=== PATIENT | female | born 1985 | race Native Hawaiian/Other Pacific Islander ===

== ENCOUNTER 2025-02-04 23:17 | Emergency (ER) | payer OTHER, SELFPAY ==
[2025-02-04 23:24] VITALS: BP 135/86
[2025-02-05 00:19] VITALS: BMI 30.5
--- NOTE | 2025-02-05 01:56 | ED.GENMED ---
History of Present Illness
General
Chief Complaint: Insect Sting
Source: patient and other (neighbor)
Exam Limitations: none
Time Seen by Provider: 02/05/25 01:28
History of Present Illness
History of Present Illness:
39-year-old female who says that on she noticed that her left anterior tib-fib area was itchy and she thought that maybe she must of suffered a bug bite although she does not recall seeing a bug, or removing any ticks, etc. Since then, she
notes progressive redness, swelling, and discomfort in the left anterior gallagher area. She denies fever, chills, joint pain, excessive fatigue, severe headache, chest pain, shortness of breath, abdominal pain, or other complaints.
Past History
Past History
ED Past Medical History: Other (Prediabetes, thyroid disorder, PCOS)
Social History
Tobacco: Non-smoker
Alcohol: None
Drug: None
Personal: Single
Phy Exam
Physical Exam
Physical Exam:
GENERAL: Alert , in no apparent distress, nontoxic, well-appearing
EYE: pupils equal and reactive
NECK: Supple, no significant adenopathy.
ENT: o/p clr, mmm.
CARDIAC: Regular rate and rhythm .
LUNGS: Clear breath sounds bilaterally, no acute respiratory distress, no wheezes/rales/rhonchi
ABDOMEN: Soft, without focal tenderness, no r/g, no cvat
NEUROLOGICAL: Alert and oriented, no focal neuro deficits
SKIN: Warm and dry, skin intact. There is an area of warmth, slight soft tissue swelling, slight tenderness to palpation, and redness at the left anterior tib-fib area without pustules, papules, fluctuance, crepitus, 'bull's-eye' appearance, or
other abnormalities. No streaking.
MUSCULOSKELETAL: No edema, well perfused.
PSYCH: Normal and appropriate interaction.
Course
Orders/Labs/Results
Orders:
Orders
02/05/25 01:44
US Legs, Left [US Periph Venous LOWER Ext LT] Urgent
Comment:
Reason For Exam: swelling
Vital Signs
Initial and Last Documented VS:
Initial Vital Signs
Temp Pulse Resp BP Pulse Ox
98.2 F 80 20 135/86 98
02/04/25 23:24 02/04/25 23:24 02/04/25 23:24 02/04/25 23:24 02/04/25 23:24
Last Documented Vital Signs
Temp Pulse Resp BP Pulse Ox
97.7 F 74 18 110/74 96
02/05/25 02:15 02/05/25 02:15 02/05/25 02:15 02/05/25 02:15 02/05/25 02:15
*Pulse Oximetry
SaO2: 98
Oxygen Mode of Delivery: Room air
Patient hypoxic: no
*Critical Care Note
Total Time (30-74mins, 75-104mins- exclusive of procedures): Not Applicable
Update Note
Update Note:
Patient presents to the Emergency Department with ___redness and swelling of left lower leg
Number and Complexity of Problems Addressed at the Encounter
� Chronic conditions affecting care:
� Acute Exacerbation and/or Progression of Chronic Illness:
� Differential Diagnosis includes: But not limited to DVT, cellulitis, abscess, etc. etc.
Amount and/or Complexity of Data to be Reviewed and Analyzed
� I performed an independent evaluation of and my interpretation is:
EKG:
CT:
Xrays:
Laboratory Studies:
Other:US VISION NAD
� Review of other/old records reveals:
� Clinical information was obtained by an independent historian:
� Prescriptions/Medications Considered but not given:
� Further testing considered but not performed:
Risk of Complications and/or Morbidity or Mortality of Patient Management
� Social determinants of health affecting care:
� Discussion with other providers (PCP, Hospitalists, Consultants, etc):
� Escalation of care including admission/observation vs risk of discharge considered:Given that patient is on OCP and presents with new onset leg swelling, we will get an ultrasound to exclude DVT. Assuming no DVT noted, exam
most otherwise consistent with cellulitis. Does not have typical stigmata of tickborne illness. Will treat cellulitis with doxycycline and instructions for close follow-up.
ED Attending Note
-
Portions of this chart may have been created with voice recognition software.� Occasional wrong word or��sound alike� substitutions may have occurred due to the inherent limitations of voice recognition software.
Discharge Plan
Departure
Patient Disposition: Home (Routine Discharge)
Date of Disposition: 02/05/25
Time of Disposition: 02:53
Patient with high blood pressure during this ER visit?: Yes
Condition: Good
Discharge Problem:
Cellulitis
Instructions: Cellulitis (Skin Infection), Adult (DC), BLOOD PRESSURE
Prescriptions:
New
doxycycline hyclate 100 mg capsule
100 mg PO BID 10 Days Qty: 20 0RF
Referrals:
UNKNOWN - PT DOES,NOT KNOW [Family Provider]
Activity Restrictions/Additional Instructions:
PLEASE SEE YOUR DOCTOR IN CLOSE FOLLOW-UP THIS WEEK. PLEASE MONITOR THE CONDITION OF YOUR LEFT LEG WITH DAILY PHOTOGRAPHS FOR PHYSICIAN REVIEW. IF YOU DEVELOP SEVERE HEADACHE, JOINT PAIN, FEVER, INCREASING REDNESS WARMTH OR SWELLING, DRAINAGE,
NUMBNESS, WEAKNESS, OR OTHER WORRISOME SIGNS, PLEASE RETURN TO THE ER IMMEDIATELY!
Interventions
Interventions:
*Risk Screen - Suicide Last Done: 02/04/25 23:24
*General Assessment Last Done: 02/04/25 23:24
*Neglect/Abuse Screening Last Done: 02/04/25 23:24
*ED- Fall Risk Assessment Last Done: 02/04/25 23:24
*ED COVID-19 Vaccine History Last Done: 02/04/25 23:24
ED-Skin Assessment Last Done: 02/05/25 00:20
ED- Pulmonary Assessment Last Done: 02/05/25 00:20
Discharge Date and Time
Print Language: HONDURAN
[2025-02-05 02:15] VITALS: BP 110/74
[2025-02-05 02:55] VITALS: BP 126/86
[2025-02-05] MEDS: VIBRAMYCIN 100 MG PO (03:00)
== END 2025-02-05 03:05 | disposition home or self-care (01) ==
LOC: EMR 23:17
PROVIDERS: EMERGENCY PHYSICIAN Emergency Medicine
DX: L03.116 Cellulitis of left lower limb (principal); R22.42 Localized swelling, mass and lump, left lower limb; R73.03 Prediabetes; E07.9 Disorder of thyroid, unspecified; E28.2 Polycystic ovarian syndrome
CPT/HCPCS: 99284; 93971